=== PATIENT | female | born 1945 | race Hispanic/Latino ===

== ENCOUNTER 2017-08-12 18:41 | Emergency (ER) | payer MEDICARE ==
[~2017-08-12 18:41] MED LIST: CIPR-245 PO; HYDR25TA PO; IMAT100T8 PO; LOSA50TA37 PO; METR500T PO; PANT40TA25 PO; PRAV20TA4 PO
[2017-08-12 20:06] LABS: BASOPHILS % (AUTO) 0.5 % (0.0-5.0); EOSINOPHILS % (AUTO) 0.8 % (0.0-8.0); LYMPHOCYTES % (AUTO) 25.8 % (21.0-51.0); MEAN CORPUSCULAR HEMOGLOBIN 31.4 pg (27.0-33.0); MEAN CORPUSCULAR HGB CONC 34.6 g/dL (32.0-36.0); MEAN CORPUSCULAR VOLUME 90.7 fL (79-99); MONOCYTES % (AUTO) 8.1 % (3.0-13.0); NEUTROPHILS % (AUTO) 64.8 % (40.0-77.0); PLATELET COUNT (AUTO) 192 K/uL (130-400); RED BLOOD CELL COUNT(AUTO) 4.08 MIL/uL (4.00-5.50); WHITE BLOOD COUNT (AUTO) 7.3 K/uL (4.8-10.8)
[2017-08-12 20:14] LABS: CREATININE 0.9 mg/dL (0.5-1.5)
[2017-08-12 20:19] LABS: ALBUMIN 3.8 g/dL (3.5-5.0); BILIRUBIN,TOTAL 0.4 mg/dL (0.2-1.0); TOTAL PROTEIN, SERUM 7.1 g/dL (6.0-8.3)
[2017-08-12] MEDS ORDERED: LIDOCAINE HCL 2% VISCOUS 15 ML UDCUP ONE (20:28)
== END 2017-08-12 20:40 | disposition home or self-care (01) ==
LOC: EDH 18:41
DX: C18.9 Malignant neoplasm of colon, unspecified (principal); K08.89 Other specified disorders of teeth and supporting structures; I10 Essential (primary) hypertension
CPT/HCPCS: 36415; 80053; 85025

== ENCOUNTER → 2018-03-24 | Outpatient (CLI) | payer MEDICARE ==
[~2018-03-24] MED LIST changes: +LOSA50TA25 PO; -LOSA50TA37 PO
== END | disposition home or self-care (01) ==
LOC: OIH 11:12
PROVIDERS: ATTEND Internal Medicine
DX: M17.0 Bilateral primary osteoarthritis of knee (principal); M11.262 Other chondrocalcinosis, left knee; M11.261 Other chondrocalcinosis, right knee
CPT/HCPCS: 73560

== ENCOUNTER 2018-11-30 10:00 | Emergency (ER) | payer MEDICARE ==
[~2018-11-30 10:00] MED LIST changes: -LOSA50TA25 PO; +LOSA50TA64 PO
[2018-11-30 11:15] LABS: BASOPHILS % (AUTO) 0.9 % (0.0-5.0); EOSINOPHILS % (AUTO) 1.8 % (0.0-8.0); HEMATOCRIT 40.7 % (36-48); LYMPHOCYTES % (AUTO) 26.2 % (21.0-51.0); MEAN CORPUSCULAR HEMOGLOBIN 30.5 pg (27.0-33.0); MEAN CORPUSCULAR HGB CONC 33.6 g/dL (32.0-36.0); MEAN CORPUSCULAR VOLUME 90.8 fL (79-99); MONOCYTES % (AUTO) 6.8 % (3.0-13.0); NEUTROPHILS % (AUTO) 64.3 % (40.0-77.0); PLATELET COUNT (AUTO) 171 K/uL (130-400); RED BLOOD CELL COUNT(AUTO) 4.49 MIL/uL (4.00-5.50); RED CELL DISTRIBUTION WIDTH 14.5 % (11.0-15.5); WHITE BLOOD COUNT (AUTO) 8.6 K/uL (4.8-10.8)
[2018-11-30 11:16] LABS: APPEARANCE,URINE Clear (CLEAR); BILIRUBIN,URINE Negative (NEGATIVE); COLOR,URINE Yellow (YELLOW); GLUCOSE, URINE (UA) Negative (NEGATIVE); KETONES,URINE Negative (NEGATIVE); LEUKOCYTE ESTERASE ,URINE Trace (NEGATIVE); NITRATE,URINE Negative (NEGATIVE); OCCULT BLOOD,URINE Negative (NEGATIVE); PH,URINE 5.5 (5.0-8.0); PROTEIN,URINE Negative (NEGATIVE); UROBILINOGEN,URINE 0.2 mg/dL (0.2-1.0)
[2018-11-30 11:37] LABS: CREATININE 0.8 mg/dL (0.5-1.5); POTASSIUM 3.8 mmol/L (3.5-5.1)
[2018-11-30 11:41] LABS: ALBUMIN 3.9 g/dL (3.5-5.0); BILIRUBIN,TOTAL 0.4 mg/dL (0.2-1.0); TOTAL PROTEIN, SERUM 7.3 g/dL (6.0-8.3)
[2018-11-30 11:47] LABS: BACTERIA,URINE Rare /HPF (None Seen); RBC,URINE None Seen /HPF (0-1); WBC,URINE 0-1 /HPF (0-1)
[2018-11-30 12:12] LABS: INR 0.93 (0.85-1.15); PARTIAL THROMBOPLASTIN TIME 28.1 SEC (26.3-35.5); PROTHROMBIN TIME 9.8 SEC (9.6-11.6)
[2018-11-30] MEDS ORDERED: TRAMADOL HCL 50 MG TABLET ONE (13:28)
== END 2018-11-30 13:53 | disposition home or self-care (01) ==
LOC: EDH 10:00
DX: M25.511 Pain in right shoulder (principal); I10 Essential (primary) hypertension; Z85.9 Personal history of malignant neoplasm, unspecified; Z90.49 Acquired absence of other specified parts of digestive tract
CPT/HCPCS: 36415; 71045; 71250; 74176; 80053; 81001; 82150; 82550; 83690; 84484; 85025; 85610; 85730; 93005

== ENCOUNTER 2020-10-13 23:43 | Emergency (ER) | payer MEDICARE ==
[~2020-10-13 23:43] MED LIST changes: -CIPR-245 PO; +CIPR500T10 PO; -PANT40TA25 PO; +PANT40TA54 PO
[2020-10-14 00:10] LABS: BASOPHILS % (AUTO) 0.7 % (0.0-5.0); HEMATOCRIT 41.1 % (36-48); LYMPHOCYTES % (AUTO) 28.8 % (21.0-51.0); MEAN CORPUSCULAR HGB CONC 33.3 g/dL (32.0-36.0); MEAN CORPUSCULAR VOLUME 87.1 fL (79-99); MONOCYTES % (AUTO) 8.2 % (3.0-13.0); PLATELET COUNT (AUTO) 192 K/uL (130-400); RED BLOOD CELL COUNT(AUTO) 4.72 MIL/uL (4.00-5.50); RED CELL DISTRIBUTION WIDTH 14.5 % (11.0-15.5); WHITE BLOOD COUNT (AUTO) 9.6 K/uL (4.8-10.8)
[2020-10-14 00:17] LABS: POTASSIUM 3.7 mmol/L (3.5-5.1)
[2020-10-14 00:22] LABS: ALBUMIN 4.3 g/dL (3.5-5.0); BILIRUBIN,TOTAL 0.3 mg/dL (0.2-1.0)
[2020-10-14 00:34] LABS: INR 0.98 (0.85-1.15); PROTHROMBIN TIME 10.7 SEC (9.6-11.6)
[2020-10-14 00:36] LABS: PARTIAL THROMBOPLASTIN TIME 26.2 SEC (26.3-35.5)
[2020-10-14] MEDS ORDERED: IOHEXOL 350 MG/ML 100ML INFUS..BTL IV ONE (02:13)
== END 2020-10-14 04:08 | disposition home or self-care (01) ==
LOC: EDH 23:43
DX: K62.5 Hemorrhage of anus and rectum (principal); I10 Essential (primary) hypertension
CPT/HCPCS: 36415; 74177; 80053; 82270; 85025; 85610; 85730; 86850; 86900; 86901; 99285; Q9967

== ENCOUNTER 2025-02-20 12:53 | Emergency (ER) | payer MEDICARE ==
[~2025-02-20] VITALS: Ht 152.4 cm; Wt 70.3 kg
[~2025-02-20 12:53] MED LIST changes: +CIPR-514 PO; -CIPR500T10 PO; -PRAV20TA4 PO; +PRAV20TA59 PO
[2025-02-20 13:01] VITALS: TEMP 98.2
--- NOTE | 2025-02-20 13:13 | NUR ---
PENDING GFR RESULTS, IV SITE, & CONSENT FOR CT EXAM.
--- NOTE | 2025-02-20 13:15 | ERN ---
ED Note History of Present Illness Stated Complaint: ABD PAIN Chief Complaint: Abdominal Pain Time Seen by MD: 12:57 Time Seen by Midlevel: 12:58 Dictation: 79-year-old female presents to the emergency department due to reported having abdominal pain around the periumbilical area for the past week. She states that she feels like she has her abdomen is swollen and describes the pain as an achy type of sensation. Patient states that the from the periumbilical area it has spread throughout her whole abdomen. Currently, she denies having any fever, chills, nausea, vomiting, constipation or diarrhea. Patient states that her last bowel movement was earlier this morning. She also reports having a sore throat. There is no report of having had contact with anybody with similar symptoms. Upon initial evaluation, the patient presents in no acute respiratory distress. Allergies: Coded Allergies: No Known Allergies (Unverified Allergy, Unknown, 11/30/18) No Known Drug Allergies (Unverified Allergy, Unknown, 02/16/16) Emergency Care HUMAN RESOURCES COORDINATOR: None Home Meds Active Scripts Metronidazole (Flagyl) 500 Mg Tablet, 500 MG PO BID, #14 TAB Prov:MARIANA HAUSER MD 11/29/16 Ciprofloxacin HCl (Ciprofloxacin HCl) 500 Mg Tablet, 500 MG PO BID, #14 TAB Prov:MARIANA HAUSER MD 11/29/16 Reported Medications Imatinib Mesylate (Imatinib Mesylate) 100 Mg Tablet, 200 MG PO DAILY, TAB 11/27/16 Pantoprazole Sodium (Pantoprazole Sodium) 40 Mg Tablet.dr, 40 MG PO DAILY, TAB 03/10/16 Hydrochlorothiazide (Hydrochlorothiazide) 25 Mg Tablet, 25 MG PO DAILY, TAB 03/10/16 Losartan Potassium (Losartan Potassium) 50 Mg Tablet, 0.5 TAB PO BID, TAB 02/15/16 Pravastatin Sodium (Pravastatin Sodium) 20 Mg Tablet, 20 MG PO HS, TAB 02/15/16 Past Medical History Past Medical History: Cancer, Depression, High Cholesterol, Hypertension Surgical History: None History: Not Applicable RN Note Reviewed/Agreed w/PFSH: Yes Review of System Dictation ENT: Sore throat Abdomen/GI: Abdominal pain Initial Vital Sign VS Vital Signs Date Time Temp Pulse Resp B/P (MAP) Pulse Ox O2 Delivery O2 Flow Rate FiO2 02/20/25 13:01 98.2 78 18 122/72 98 02/20/25 13:10 Room Air* 0 21 Physical Exam Dictation General: awake, alert, NAD Head/Face: Normocephalic, atraumatic Eyes: PERRL, EOMI ENT: Oral mucosa moist, oropharynx with a normal limits Neck: Trachea midline, supple Cardiovascular: RRR, no edema Respiratory: Symmetrical, non-labored Abdomen: Soft, non-tender, non-distended, periumbilical tenderness with voluntary guarding Skin: Warm, dry, good turgor, no rash MS/Extremity: Pulses equal, no cyanosis, neurovascular intact, FROM Neuro: COAx4, GCS 15, steady gait, Psych: Normal behavior, mood, and affect normal Results (Laboratory/Radiology) Laboratory/Radiology Laboratory Tests Test 02/20/25 13:00 02/20/25 13:30 02/20/25 13:54 Group A Streptococcus Rapid negative (NEGATIVE) White Blood Count 7.5 K/uL (4.8-10.8) Red Blood Count 4.47 MIL/uL (4.00-5.50) Hemoglobin 13.3 g/dL (12.0-16.0) Hematocrit 40.4 % (36-48) Mean Corpuscular Volume 90.4 fL (79-99) Mean Corpuscular Hemoglobin 29.8 pg (27.0-33.0) Mean Corpuscular Hemoglobin Concent 32.9 g/dL (32.0-36.0) Red Cell Distribution Width 14.0 % (11.0-15.5) Platelet Count 226 K/uL (130-400) Mean Platelet Volume 11.2 fL (7.5-10.5) H Immature Granulocyte % (Auto) 0.9 % (0-1) Neutrophils (%) (Auto) 62.1 % (40.0-77.0) Lymphocytes (%) (Auto) 24.0 % (21.0-51.0) Monocytes (%) (Auto) 10.3 % (3.0-13.0) Eosinophils (%) (Auto) 2.3 % (0.0-8.0) Basophils (%) (Auto) 0.4 % (0.0-5.0) Neutrophils # (Auto) 4.7 K/uL (1.8-7.7) Lymphocytes # (Auto) 1.8 K/uL (1.0-4.8) Monocytes # (Auto) 0.8 K/uL (0.1-1.0) Eosinophils # (Auto) 0.17 K/uL (0.00-0.70) Basophils # (Auto) 0.03 K/uL (0.00-0.20) Absolute Immature Granulocyte (auto 0.07 K/uL (0-1) Nucleated Red Blood Cells 0.0 % (0.0-0.19) Sodium Level 140 mmol/L (136-145) Potassium Level 3.6 mmol/L (3.5-5.1) Chloride Level 103 mmol/L (101-111) Carbon Dioxide Level 29 mmol/L (21-32) Blood Urea Nitrogen 18 mg/dL (7-18) Creatinine 0.8 mg/dL (0.5-1.0) Glomerular Filtration Rate Calc 75 mL/min (>90) Random Glucose 102 mg/dL (70-105) Total Calcium 9.2 mg/dL (8.5-10.1) Total Bilirubin 0.3 mg/dL (0.2-1.0) Aspartate Amino Transf (AST/SGOT) 20 U/L (10-37) Alanine Aminotransferase (ALT/SGPT) 20 U/L (12-78) Alkaline Phosphatase 76 U/L (50-136) Troponin I High Sensitivity 4 ng/L (4-50) Total Protein 6.9 g/dL (6.0-8.3) Albumin 3.6 g/dL (3.5-5.0) Lipase 31 U/L (16-77) Urine Color YELLOW (YELLOW) Urine Appearance CLEAR (CLEAR) Urine pH 6.0 (5.0-8.0) Urine Specific [place] 1.020 (1.001-1.031) Urine Protein NEGATIVE mg/dL (NEGATIVE) Urine Glucose (UA) NEGATIVE mg/dL (NEGATIVE) Urine Ketones NEGATIVE mg/dL (NEGATIVE) Urine Occult Blood NEGATIVE (NEGATIVE) Urine Nitrate NEGATIVE (NEGATIVE) Urine Bilirubin NEGATIVE mg/dL (NEGATIVE) Urine Urobilinogen 0.2 mg/dL (0.2-1.0) Urine Leukocyte Esterase NEGATIVE Patti/uL Labs Reviewed?: Yes X-RAY Comment: X-ray of the neck soft tissue with no pertinent findings as interpreted by me. CT Scan Comment: CT abdomen/pelvis with IV contrast with no pertinent findings. ED Course ED Course Orders Procedure Category Date Status Time Troponin I High LAB 02/20/25 Complete Sensitivity 13:08 Cbc With Differential LAB 02/20/25 Complete 13:08 Comprehensive LAB 02/20/25 Complete Metabolic Panel 13:08 Urinalysis Profile LAB 02/20/25 Complete 13:08 Lipase LAB 02/20/25 Complete 13:08 Rapid (Group A Strep) LAB 02/20/25 Complete 13:08 Ct Abdomen/Pelvis CT 02/20/25 Resulted W/Contrast 13:08 Neck Soft Tissue RAD 02/20/25 Resulted 13:08 Ketorolac PHA 02/20/25 Complete Tromethamine 15mg/Ml 13:30 Iohexol (Omnipaque) PHA 02/20/25 Complete 13:56 Current Medications Medications (Trade) Dose Ordered Sig/Anali Route PRN Reason Start Time Stop Time Status Last Admin Dose Admin Iohexol (Omnipaque) 75 ml STK-MED ONCE IV 02/20/25 13:56 02/20/25 13:56 DC Ketorolac Tromethamine (toRADol) 15 mg ONCE ONCE IV 02/20/25 13:30 02/20/25 13:31 DC 02/20/25 13:39 Vital Signs Date Time Temp Pulse Resp B/P (MAP) Pulse Ox O2 Delivery O2 Flow Rate FiO2 02/20/25 13:10 73 20 122/75 98 Room Air* 0 21 02/20/25 13:01 98.2 78 18 122/72 98 Medical Decision Making MDM MDM: Differential diagnosis: Acute abdominal pain, neck pain, sore throat. Rationale: Tests considered and ordered secondary to shared decision making include: Previous outside records reviewed: Old ER visits. Risk of complication and/or morbidity or mortality of patient management: None Medications-Per medication reconciliation Need for hospitalization: Patient does not meet criteria for hospitalization. Need for emergency major/minor surgery: No There are no social concerns with this patient. Prescription drug management Prescriptions will include symptomatic care Patient's prior external medical records from other ER visits were reviewed by me as indicated. Prior testing and results from previous visits were reviewed. Prior tests were taken into account with medical decision making and resource utilization, independent historian/historians were used to obtain complete medical history. I independently interpreted the test that were performed, results were reviewed by me and considered findings on radiology if ordered. Medical management and examination interpretation discussions were had by me with other qualified healthcare professionals as indicated for the patient's care. DX & DISP Disposition: Discharge Departure Impression: Primary Impression: Acute abdominal pain Condition: Stable Referrals: CLA AGUILAR DO (PCP) Time of Disposition: 15:53 DEVI BERMUDEZ Feb 20, 2025 13:15
[2025-02-20 13:34] LABS: IMMATURE GRANULOCYTE ABSOLUTE 0.07 K/uL (0-1); NUCLEATED RED BLOOD CELLS 0.0 % (0.0-0.19); PLATELET COUNT (AUTO) 226 K/uL (130-400); RED BLOOD CELL COUNT(AUTO) 4.47 MIL/uL (4.00-5.50); RED CELL DISTRIBUTION WIDTH 14.0 % (11.0-15.5); WHITE BLOOD COUNT (AUTO) 7.5 K/uL (4.8-10.8)
[2025-02-20 13:44] LABS: CREATININE 0.8 mg/dL (0.5-1.0); GLOMERULAR FILTR. RATE CALC 75.0 mL/min (>90); GLUCOSE,RANDOM 102.0 mg/dL (70-105); SODIUM SERUM 140.0 mmol/L (136-145); UREA NITROGEN, BLOOD 18.0 mg/dL (7-18)
[2025-02-20 13:48] LABS: ASPARTATE AMINOTRANSFERASE 20.0 U/L (10-37); TOTAL PROTEIN, SERUM 6.9 g/dL (6.0-8.3)
[2025-02-20] MEDS ORDERED: IOHEXOL-350 75 ML VIAL IV ONE (13:56)
--- NOTE | 2025-02-20 14:03 | HMCIMG ---
EXAM: CR Soft Tissue Neck, 2 View. CLINICAL HISTORY: pain COMPARISON: None provided. FINDINGS: SOFT TISSUES: Unremarkable. No retropharyngeal soft tissue swelling or gas. EPIGLOTTIS: No epiglottic thickening. BONES: No acute osseous abnormality. Cervical spondylosis and multilevel degenerative disc disease. IMPRESSION: Soft tissue plain films of the neck are within normal limits. /[place]
[2025-02-20 14:08] LABS: APPEARANCE,URINE CLEAR (CLEAR); GLUCOSE, URINE (UA) NEGATIVE (NEGATIVE); LEUKOCYTE ESTERASE ,URINE NEGATIVE Leu/uL (NEGATIVE); NITRATE,URINE NEGATIVE (NEGATIVE); OCCULT BLOOD,URINE NEGATIVE (NEGATIVE)
[2025-02-20 14:09] LABS: ADD UA MICROSCOPIC NO
--- NOTE | 2025-02-20 15:25 | HMCIMG ---
EXAM: CT Abdomen and Pelvis with IV contrast CLINICAL HISTORY: pain TECHNIQUE: Axial computed tomography images of the abdomen and pelvis with intravenous contrast. CONTRAST: with intravenous contrast. COMPARISON: CT dated October 14, 2020. FINDINGS: LUNG BASES: The lung bases appear clear. No pleural effusions are seen. LIVER: Unremarkable. GALLBLADDER AND BILE DUCTS: Not visualized. No biliary ductal dilatation is evident. PANCREAS: Unremarkable. SPLEEN: Unremarkable. ADRENAL GLANDS: Unremarkable. KIDNEYS, URETERS, AND BLADDER: The kidneys appear within normal limits. There is no hydronephrosis or hydroureter. Minimal bilateral perinephric fat stranding. Few (at least 3) well-defined hypodense cysts without any calcification or septation are seen in the right kidney, the largest measuring 2.4 x 2.6 cm (Bosniak 1 cysts). Similar but smaller subcentimetre-sized cysts are also seen in the left kidney. A tiny calculus measuring 3.5 mm is seen in the mid pole of the right kidney. STOMACH AND BOWEL: No evidence of bowel obstruction. No evidence suggesting enteritis or colitis. A small, well-defined oval enhancing soft tissue lesion measuring 1.2 x 1.6 x 1.5 cm closely abutting the D3 segment of the duodenum adjacent to the inferior vena cava. No obvious calcification or fat is seen within the lesion. APPENDIX: No evidence of acute appendicitis on CT examination. PERITONEUM: No free fluid. No free air. LYMPH NODES: No lymphadenopathy is evident. REPRODUCTIVE: Unremarkable as visualized. Small hyperdense soft tissue lesion in the uterine fundus measuring 1.1 x 7.4 cm, suggestive of fibroid. VASCULATURE: No evidence of abdominal aortic aneurysm. BONES: No aggressive appearing osseous lesion. Lumbar spondylotic changes seen. Grade I anterolisthesis of L4 over L5 vertebral body. No obvious bilateral pars interarticularis defect. IMPRESSION: 1. No acute intra-abdominal or pelvic pathology. 2. Stable, small duodenal soft tissue lesion (1.2 x 1.6 x 1.5 cm) abutting D3 segment of the duodenum. This may be further characterized with contrast-enhanced MR imaging on a nonemergent basis. 3. Right renal calculus (3.5 mm) and bilateral simple renal cysts (Bosniak 1). /[place]
[2025-02-20 15:59] VITALS: BP 138/71; PULSE 87; RESP 20; O2SAT 100
== END 2025-02-20 16:00 | disposition home or self-care (01) ==
LOC: EDH 12:53
DX: R10.33 Periumbilical pain (principal); E78.00 Pure hypercholesterolemia, unspecified; I10 Essential (primary) hypertension; Z79.899 Other long term (current) drug therapy
CPT/HCPCS: 99285; 74177; 96374; 84484; 80053; 83690; 85025; 87880; 81003; 36415; 70360; J1885; Q9967